=== PATIENT | male | born 2000 | race Hispanic/Latino ===

== ENCOUNTER 2021-10-04 10:16 | Emergency (ER) | payer SELFPAY ==
[2021-10-04] MEDS ORDERED: LIDOCAINE 1% 20 ML MDV ONE ×2 (10:42→14:34)
[2021-10-04] MEDS ORDERED: TETANUS & DIPHTHERIA TOX,ADULT 0.5 ML VIAL ONE (10:43)
--- NOTE | 2021-10-04 11:06 | RAD REPORT ---
EXAM DESCRIPTION: RAD - Hand Right 3 View - 10/04/2021 10:54 am CLINICAL HISTORY: Lacerationpalmar surface of the hand between the thumb and first digit COMPARISON: No comparisons FINDINGS: Bandaging is in place which limits soft tissue evaluation. No fracture identified. No acut e bone process seen. There is no dislocation or periosteal reaction noted. No metallic foreign body is identifiable. The affects of the bandaging material limits evaluation of foreign bodies that are c loser in density to normal soft tissue. IMPRESSION: No acute bone or joint finding of the right hand. Assessment is limited but no foreign body identified.
[2021-10-04] MEDS ORDERED: MORPHINE 4 MG/ML SYR ONE (11:29)
[2021-10-04] MEDS ORDERED: ONDANSETRON 4 MG/2 ML VIAL ONE (11:29)
[2021-10-04] MEDS ORDERED: CEFAZOLIN SODIUM 1 GM/VIAL ONE (12:57)
[2021-10-04] MEDS ORDERED: NA CHLORIDE 0.9% 100 ML ONE (12:57)
--- NOTE | 2021-10-04 16:26 | ER ---
Nurse's Notes [facility] Name: Sridhar Pandya Age: 20 yrs Sex: Male : 2000 Arrival Date: 10/04/2021 Time: 10:28 Bed 7 Private MD: Diagnosis: Laceration without foreign body of right hand Presentation: 10/04 10:28 Chief complaint: EMS states: R PALMAR CUT WITH SHEET METAL. Coronavirus screen: At this bp time, the client does not indicate any symptoms associated with coronavirus-19. Ebola Screen: No symptoms or risks identified at this time. Complicating Factors: JOB SITE. Initial Sepsis Screen: Does the patient meet any 2 criteria? No. Patient's initial sepsis screen is negative. Does the patient have a suspected source of infection? No. Patient's initial sepsis screen is negative. Risk Assessment: Do you want to hurt yourself or someone else? Patient reports no desire to harm self or others. Onset of symptoms was October 04, 2021 at 09:00. Care prior to arrival: IV initiated. 18 GA, in the left antecubital area. 10:28 Method Of Arrival: EMS: [facility] bp 10:28 Acuity: EKATERINA 3 bp Triage Assessment: 10:29 General: Appears distressed, uncomfortable, Behavior is cooperative, appropriate for bp age, anxious. Pain: Complains of pain in right hand. EENT: No deficits noted. Neuro: No deficits noted. Cardiovascular: No deficits noted. Respiratory: No deficits noted. GI: No signs and/or symptoms were reported involving the gastrointestinal system. : No signs and/or symptoms were reported regarding the genitourinary system. Derm: No deficits noted. Musculoskeletal: No deficits noted. Injury Description: Laceration sustained to Right first web space. Historical: - Allergies: 10:29 No Known Allergies; bp - Home Meds: 10: None [Active]; bp - PMHx: 10: None; bp - Immunization history:: Last tetanus immunization: unknown. - Social history:: Smoking status: Patient denies any tobacco usage or history of. Screenin:32 Abuse screen: Denies threats or abuse. Denies injuries from another. Nutritional bp screening: No deficits noted. Tuberculosis screening: No symptoms or risk factors identified. Fall Risk None identified. Assessment: 10:32 General: SEE TRIAGE NOTE. bp 10:45 Injury Description: Laceration is jagged, 7.6 to 20 cm long, bleeding moderately. bp 12:00 Reassessment: PROVIDER AT B/S FOR REPAIR. bp 14:00 Reassessment: ATTEMPTING TO TRANSFER FOR HIGHER LEVEL OF CARE. NO ACCEPTANCE AT THIS bp TIME. 16:00 Reassessment: TRANSFER ATTEMPT CONTINUES. bp 17:27 Reassessment: PT D/C HOME AMBULATORY, TO F/U WITH [facility] TOMORROW. bp Vital Signs: 10:28 Weight 74.84 kg; bp 10:29 BP 141 / 91; Pulse 60; Resp 16; Temp 97.8; Pulse Ox 100% ; bp 11:00 BP 121 / 74; Pulse 69; Resp 17; Pulse Ox 100% ; bp 12:00 BP 113 / 63; Pulse 51; Resp 16; Pulse Ox 100% ; bp 13:00 BP 104 / 60; Pulse 66; Resp 16; Pulse Ox 100% ; bp 14:00 BP 119 / 64; Pulse 81; Resp 16; Pulse Ox 100% ; bp ED Course: 10:28 Patient arrived in ED. bp 10:29 Heron Medrano NP is PHCP. pm1 10:29 Deandre Pop MD is Attending Physician. pm1 10:29 Triage completed. bp 10:29 Arm band placed on. bp 10:32 Patient has correct armband on for positive identification. Bed in low position. Call bp light in reach. Side rails up X2. Adult w/ patient. 10:33 Peter Thrasher, JENAE is Primary Nurse. bp 10:33 Maintain EMS IV. Dressing intact. Good blood return noted. Site clean \T\ dry. Gauge \T\ bp site: 18 GA LEFT AC. 10:56 Hand Right 3 View XRAY In Process Unspecified. EDMS 17:00 Orthoglass splint: Thumb spica splint applied on right forearm. bp 17:27 No provider procedures requiring assistance completed. IV discontinued, intact, bp bleeding controlled, No redness/swelling at site. Pressure dressing applied. 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 Exp: bp 07/02/2023. Lot #: [id number]. } Route: IM; Site: right deltoid; 11:18 Follow up: Response: No adverse reaction bp 11:28 Drug: morphine 4 mg Route: IVP; Infused Over: 4 mins; Site: left antecubital; bp 12:59 Follow up: Response: Pain is decreased bp 11:28 Drug: Zofran (Ondansetron) 4 mg Route: IVP; Site: left antecubital; bp 12:59 Follow up: Response: No adverse reaction bp 12:59 Drug: ceFAZolin 1 grams Volume: 50 ml; Route: IVPB; Infused Over: 30 mins; Site: left bp antecubital; Outcome: 16:25 Discharge ordered by . pm1 17:28 Discharged to home ambulatory. bp 17:28 Condition: stable 17:28 Discharge instructions given to patient, Instructed on discharge instructions, follow up and referral plans. medication usage, Demonstrated understanding of instructions, follow-up care, medications, splint care, Prescriptions given X 1. 17:30 Patient left the ED. bp Signatures: Dispatcher [employer] EDMS Heron Medrano NP DYNAMOMETER TESTER pm1 Peter Thrasher, RN RN bp
--- NOTE | 2021-10-04 16:26 | EDPHYS ---
Physician Documentation [facility] Name: Sridhar Pandya Age: 20 yrs Sex: Male : 2000 Arrival Date: 10/04/2021 Time: 10:28 Bed 7 Private MD: ED Physician Deandre Pop HPI: 10/04 10:31 This 20 yrs old Male presents to ER via EMS with complaints of Laceration. pm1 10:31 The patient or guardian reports a laceration. The complaints affect the Right first web pm1 space along the thenar process distal to right wrist. Context: The problem was sustained outdoors, at work. Onset: The symptoms/episode began/occurred just prior to arrival. Modifying factors: The symptoms are alleviated by pressure to area, tourniquet by EMS. Associated signs and symptoms: Pertinent negatives: numbness distally, tingling distally, right thumb. Severity of symptoms: in the emergency department the symptoms have improved, bleeding improved with pressure dressing by EMS and tourniquet. The patient has not experienced similar symptoms in the past. The patient has not recently seen a physician. 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 Historical: - Allergies: 10:29 No Known Allergies; bp - Home Meds: 10:29 None [Active]; bp - PMHx: 10:29 None; bp - Immunization history:: Last tetanus immunization: unknown. - Social history:: Smoking status: Patient denies any tobacco usage or history of. ROS: 10:31 Constitutional: Negative for fever, chills, and weight loss, Cardiovascular: Negative pm1 for chest pain, palpitations, and edema, Respiratory: Negative for shortness of breath, cough, wheezing, and pleuritic chest pain. 10:31 MS/extremity: Positive for laceration, pain, of the right hand. 10:31 Skin: Positive for laceration(s), of the right hand. 10:31 Neuro: Positive for numbness, tingling, of the right thumb. 10:31 All other systems are negative. Exam: 18:49 Constitutional: This is a well developed, well nourished patient who is awake, alert, pm1 and in no acute distress. Head/Face: Normocephalic, atraumatic. 18:49 Cardiovascular: Exam negative for acute changes, Rate: normal, Rhythm: regular, Pulses: no pulse deficits are appreciated. 18:49 Respiratory: Exam negative for acute changes, respiratory distress, shortness of breath. 18:49 Musculoskeletal/extremity: Extremities: grossly normal except: noted in the Right first web space along thenar process distal to right wrist: laceration, ROM: limited active range of motion, in the right thumb, patient with limited adduction of right thumb, Circulation is intact in all extremities. no gross loss of sensation to right thumb 18:49 Skin: Appearance: normal except for affected area, injury, laceration(s), the wound is approximately 10 cm(s), with a depth of 2 cm(s), of the Right first web space along thnar process distal to right wrist. 18:49 Neuro: Exam negative for acute changes, Orientation: is normal, Mentation: is normal, Motor: is normal, moves all fours. Vital Signs: 10:28 Weight 74.84 kg; bp 10:29 BP 141 / 91; Pulse 60; Resp 16; Temp 97.8; Pulse Ox 100% ; bp 11:00 BP 121 / 74; Pulse 69; Resp 17; Pulse Ox 100% ; bp 12:00 BP 113 / 63; Pulse 51; Resp 16; Pulse Ox 100% ; bp 13:00 BP 104 / 60; Pulse 66; Resp 16; Pulse Ox 100% ; bp 14:00 BP 119 / 64; Pulse 81; Resp 16; Pulse Ox 100% ; bp Laceration: 13:06 Wound Repair of 10cm ( 3.9in ) subcutaneous laceration to Right first web space along pm1 thenar process to just distal to right wrist. Linear shaped.. Distal neuro/vascular/tendon intact. Anesthesia: Local anesthetic administered with 6 mls of Lido/Marcaine. Wound prep: Extensive cleansing with betadine with hibiclenz by me, Wound irrigation with saline by me, Wound explored extensively, Copious irrigation. Skin closed with 8 4-0 Prolene using simple sutures and sterile technique. Subcutaneous tissue closed with 4 4-0 Chromic gut using figure 8 sutures to stop bleeding. Dressed with 4x4's, pressure dressing. Patient tolerated well. MDM: 10:29 Patient medically screened. pm1 13:05 Physician consultation: Stanislaw Fragoso MD Called twice but no answer and voice mailbox pm1 full. Dr. Fragoso is not interim controller for hand surgery. No hand surgeons interim controller for us. Therefore will transfer the patient. Informed the patient will need to transfer him due lack of speciality. 13:06 Counseling: I had a detailed discussion with the patient and/or guardian regarding: the pm1 historical points, exam findings, and any diagnostic results supporting the discharge/admit diagnosis, radiology results, the need to transfer to another facility, [facility] does not immediately have the required specialist. 13:21 ED course: [facility] will not take the patient because the transfer pm1 center considers the injury trauma. Will transfer to a trauma center. 13:21 Data reviewed: vital signs. Data interpreted: Pulse oximetry: on room air is 100 %. pm1 Interpretation: normal. 13:45 Physician consultation: Hand Surgery Trav regarding regarding transfer, patient's pm1 condition, Described the length of the laceration, patient's limited range of motion (decreased adduction) and weakness of adduction, and numbness and tingling to right thumb on his dominant hand. Patient's circulation to right thumb is intact and the laceration is closed, so Dr. Ravi recommended that the patient does not need transfer and can be seen on a outpatient basis with him or another hand surgeon. Place the patient's hand in a thumb spica and discharge with antibiotics, cephalexin. Given his office number [phone]. 14:44 Physician consultation: Stanislaw Fragoso MD was contacted at 14:42, regarding consult, pm1 patient's condition, after a discussion of the case, a recommendation for transfer for higher level of care is made. 16:20 Physician consultation: Hand Surgeon Rob was contacted at 16:20, regarding consult, pm1 patient's condition, and will see patient in office, tomorrow, Place the patient in a thumb spica splint and discharge with antibiotics. 10/04 13:42 Order name: SARS-COV-2 RT PCR (Document "Date of Onset" if Symptomatic); Complete Time: bp 15:08 10/04 10:30 Order name: Hand Right 3 View XRAY; Complete Time: 11:10 pm1 10/04 10:30 Order name: Dressing - Wound; Complete Time: 10:33 pm1 10/04 10:30 Order name: Gloves, Sterile; Complete Time: 11:17 pm1 10/04 10:30 Order name: Prolene, Sutures; Complete Time: 11:17 pm1 10/04 10:30 Order name: Setup Suture Tray; Complete Time: 11:17 pm1 10/04 16:26 Order name: Thumb Spica Splint; Complete Time: 17:27 pm1 10/04 16:26 Order name: Sling; Complete Time: 17:27 pm1 Administered Medications: 10:40 Drug: Bupivacaine (0.5 %) 10 ml Volume: 10 ml; Route: Infiltration; bp 10:40 Drug: Lidocaine (1 %) 5 ml Volume: 5 ml; Route: Infiltration; bp 10:40 Drug: Tetanus-Diphtheria Toxoid Adult 0.5 ml {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 Exp: 07/02/2023. Lot #: [id number]. } Route: IM; Site: right deltoid; 11:18 Follow up: Response: No adverse reaction bp 11:28 Drug: morphine 4 mg Route: IVP; Infused Over: 4 mins; Site: left antecubital; bp 12:59 Follow up: Response: Pain is decreased bp 11:28 Drug: Zofran (Ondansetron) 4 mg Route: IVP; Site: left antecubital; bp 12:59 Follow up: Response: No adverse reaction bp 12:59 Drug: ceFAZolin 1 grams Volume: 50 ml; Route: IVPB; Infused Over: 30 mins; Site: left bp antecubital; Disposition: 18:04 Co-signature as Attending Physician, Deandre Pop MD. rn Disposition Summary: 10/04/21 16:25 Discharge Ordered Location: Home pm1 Problem: new pm1 Symptoms: have improved pm1 Condition: Stable pm1 Diagnosis - Laceration without foreign body of right hand pm1 Followup: pm1 - With: Emergency Department - When: As needed - Reason: Worsening of condition Followup: pm1 - With: Private Physician - When: Tomorrow - Reason: Recheck today's complaints, Continuance of care, Re-evaluation by your physician Discharge Instructions: - Discharge Summary Sheet pm1 - Cast or Splint Care, Adult pm1 - Laceration Care, Adult pm1 Forms: - Medication Reconciliation Form pm1 - Thank You Letter pm1 - Antibiotic Education pm1 - Prescription Opioid Use pm1 Prescriptions: - Cephalexin 500 mg Oral Capsule - take 1 capsule by ORAL route every 6 hours for 10 days; 40 capsule; Refills: 0, pm1 Product Selection Permitted Signatures: Dispatcher [employer] EDDeandre Patino MD MD rn Heron Medrano, BUSINESS LAW INSTRUCTOR BUSINESS LAW INSTRUCTOR pm1 Peter Thrasher, RN RN bp
[2021-10-04 17:35] VITALS: TEMP 97.8; O2SAT 100
[2021-10-04 17:41] VITALS: BP 119/64
== END 2021-10-04 17:30 | disposition home or self-care (01) ==
LOC: ER 10:16
DX: S61.411A Laceration without foreign body of right hand, initial encounter (principal); Z23 Encounter for immunization; Z20.822 Contact with and (suspected) exposure to COVID-19
CPT/HCPCS: 90714; J0690; J2405; U0003